=== PATIENT | female | born 1950 | race Caucasian/White ===

== ENCOUNTER 2018-05-11 06:20 | Inpatient (IN) | payer MEDICARE, OTHER ==
[~2018-05-11] VITALS: Ht 170.2 cm; Wt 93.0 kg
[~2018-05-11 06:20] MED LIST: ACYC5CRE2 TP; ALBU6.7H INH; AMIT100T58 PO; BUDE10.22 INH; BUSP10TA10 PO; CELE-85 PO; CLIN-5 PO; FURO20TA4 PO; HYDR-3965 PO; LANTUS SUBCUT; LEVE250T PO; Levetiracetam PO; METO100T14 PO; NITR0.4T SL; PHEN100C12 PO; PHENYTOIN SODIUM PO; SIMV20TA5 PO; SPIIN IH; humalog SQ
[2018-05-11] MEDS ORDERED: ondansetron/PF 4mg/2ml inj IV ONE (06:45)
[2018-05-11] MEDS ORDERED: normal saline 1000ML IV soln IVB ONE (06:45)
[2018-05-11] MEDS ORDERED: ipratropium/albuterol 3ml nebule NEB ONE (06:45)
[2018-05-11] MEDS ORDERED: morphine 4 MG/ML inj SYRINge IV ONE (06:45)
[2018-05-11] MEDS ORDERED: methylPREDNISolone sod succ 125mg/2ml vial IV ONE (06:45)
[2018-05-11 07:04] LABS: BASOPHILS % (AUTO) 0.1 % (0-1); EOSINOPHILS # (AUTO) 0.1 X10'3 (0-0.9); EOSINOPHILS % (AUTO) 1.3 % (0-6); HEMATOCRIT 42.9 % (35.0-45.0); HEMOGLOBIN 14.4 g/dl (12.0-16.0); LYMPHOCYTES # (AUTO) 0.8 X10'3 (1.1-4.8); LYMPHOCYTES % (AUTO) 8.7 % (21-51); MEAN CORPUSCULAR HEMOGLOBIN 29.5 PG (27.0-31.0); MEAN CORPUSCULAR HGB CONC 33.5 % (33.0-36.5); MEAN CORPUSCULAR VOLUME 88.2 FL (78-98); MEAN PLATELET VOLUME 8.1 FL (7.4-10.4); MONOCYTES # (AUTO) 0.5 X10'3 (0-0.9); MONOCYTES % (AUTO) 4.8 % (2-12); NEUTROPHILS # (AUTO) 8.2 X10'3 (1.8-7.7); NEUTROPHILS % (AUTO) 85.1 % (42-75); PLATELET COUNT 338 X10'3 (140-440); RED BLOOD COUNT 4.87 X10'6 (4.20-5.60); RED CELL DISTRIBUTION WIDTH 13.3 % (11.5-14.5); WHITE BLOOD COUNT 9.7 X10'3 (4.5-11.0)
[2018-05-11 07:22] LABS: ALANINE AMINOTRANSFERASE 23 U/L (12-78); ALBUMIN 2.9 G/DL (3.4-5.0); ALBUMIN/GLOBULIN RATIO 0.7 (1.1-1.5); ALKALINE PHOSPHATASE 96 IU/L (46-116); ANION GAP 11 (8-16); ASPARTATE AMINO TRANSFERASE 17 U/L (10-37); BILIRUBIN,TOTAL 0.2 MG/DL (0.1-1.0); BLOOD UREA NITROGEN 9 MG/DL (7-18); BUN/CREATININE RATIO 11.1 (6.6-38.0); CALCIUM 9.7 MG/DL (8.5-10.1); CHLORIDE 98 MMOL/L (99-107); CREATININE 0.81 MG/DL (0.40-0.90); GLUCOSE 234 MG/DL (70-104); SODIUM 141 MMOL/L (135-145); TOTAL CARBON DIOXIDE 31.8 MMOL/L (24-32); TOTAL PROTEIN 7.3 G/DL (6.4-8.2); eGFR 71 ML/MIN
[2018-05-11 07:29] LABS: AMYLASE 26 U/L (25-115); LIPASE 359 U/L (73-393); MAGNESIUM 1.5 MG/DL (1.5-2.4); TROPONIN I < 0.04 NG/ML (0.0-0.05)
[2018-05-11 07:31] LABS: D-DIMER 3.26 MG/L FEU (0-0.50); INR 1.1 INR; PROTHROMBIN TIME 10.7 SECONDS (9.0-12.0)
[2018-05-11] MEDS ORDERED: metoprolol tartrate 1mg/ml inj IV ONE ×2 (07:45→09:45)
[2018-05-11] MEDS ORDERED: metoprolol tartrate 50mg tablet PO ONE ×2 (07:45→09:45)
[2018-05-11] MEDS ORDERED: iohexol 350MG/ML 100ml bottle IV ONE (07:49)
[2018-05-11] MEDS ORDERED: GABA-532 PO ×2 (08:00)
[2018-05-11] MEDS ORDERED: CYCL-394 PO (08:00)
[2018-05-11] MEDS ORDERED: LANTUS SQ (08:00)
[2018-05-11] MEDS ORDERED: LIRA0.6P2 SQ (08:12)
[2018-05-11] MEDS ORDERED: ATOR10TA87 PO (08:19)
[2018-05-11] MEDS: MESSAGE TO NURSING PO NR ×2 (08:40→10:00)
[2018-05-11] MEDS ORDERED: metroNIDAZOLE-Flagyl 500mg/NS 100 ML IV STA (08:58)
[2018-05-11] MEDS ORDERED: nicotine 21mg patch - 24 hr TD ONE (09:25)
[2018-05-11] MEDS: levoFLOXACIN-Levaquin 500mg/D5 100 ML IV ONE ×2 (10:00→11:20)
[2018-05-11 10:06] LABS: CLARITY,URINE CLEAR (Clear); COLOR,URINE YELLOW (Yellow); GLUCOSE, URINE NEGATIVE (Neg); KETONES,URINE NEGATIVE (Neg); LEUKOCYTE ESTERASE ,URINE NEGATIVE (Neg); NITRITES, URINE NEGATIVE (Neg); OCCULT BLOOD,URINE NEGATIVE (Neg); PH,URINE 6.5 (4.8-8.0); PROTEIN,URINE NEGATIVE (Neg); UROBILINOGEN,URINE 0.2 E.U/dL (0.2-1.0)
[2018-05-11 10:14] LABS: UA COLLECTION TYPE CLN CATCH MIDSTREAM
[2018-05-11] MEDS: normal saline 1000ml 1,000 ML IV SCH (10:52)
[2018-05-11] MEDS ORDERED: magnesium 1gm/100ml D5W IVPB 100 ML IV PRN (10:55)
[2018-05-11] MEDS ORDERED: ondansetron/PF 4mg/2ml inj IV PRN (10:55)
[2018-05-11] MEDS ORDERED: magnesium Cl slow-release 64mg tablet PO PRN (10:55)
[2018-05-11] MEDS: K and/or MAG REPLACEMENT MC SCH (10:55)
[2018-05-11] MEDS ORDERED: diphenhydrAMINE 25mg capsule PO PRN (10:55)
[2018-05-11] MEDS ORDERED: acetaminophen 650mg rectal suppository RC PRN (10:55)
[2018-05-11] MEDS ORDERED: morphine 2 MG/ML inj. syringe IV PRN (10:55)
[2018-05-11] MEDS ORDERED: MESSAGE TO PHARMACY PO ONE (10:55)
[2018-05-11] MEDS ORDERED: dextrose ORAL solution 15 GM/59 ML bottle PO PRN ×2 (10:55)
[2018-05-11] MEDS ORDERED: HYDROcodone/acetaminophen 5mg/325mg tablet PO PRN (10:55)
[2018-05-11] MEDS ORDERED: dextrose 50%-water 50ml dispensing syringe IV PRN ×2 (10:55)
[2018-05-11] MEDS ORDERED: magnesium 4gm in 100ml NS 100 ML IV PRN (10:55)
[2018-05-11] MEDS ORDERED: mag hydrox/Alum hydrox/simeth 30ml oral suspension PO PRN (10:55)
[2018-05-11] MEDS ORDERED: potassium Cl 20 mEq SR tablet PO PRN ×2 (10:55)
[2018-05-11] MEDS ORDERED: magnesium hydroxide 30ml (MOM) UD suspension PO PRN (10:55)
[2018-05-11] MEDS ORDERED: potassium Cl 40MEQ/NS 500ml 500 ML IV PRN ×2 (10:55)
[2018-05-11] MEDS ORDERED: acetaminophen 325mg tablet PO PRN ×2 (10:55)
[2018-05-11] MEDS ORDERED: glucagon, human recombinant 1mg kit SUBCUT PRN (10:55)
[2018-05-11] MEDS ORDERED: bisacodyl 10mg suppository rectal RC PRN (10:55)
[2018-05-11 11:53] LABS: HEMOGLOBIN A1C 9.3 % (4.5-6.2)
[2018-05-11] MEDS ORDERED: nitroGLYCERIN 0.4mg SUBLingual tab SL PRN (12:15)
[2018-05-11] MEDS ORDERED: albuterol 2.5 MG/3 ML nebule NEB PRN (12:25)
[2018-05-11] MEDS: cyclobenzaprine 10mg tablet PO SCH ×2 (13:00→22:37)
[2018-05-11] MEDS: ipratropium/albuterol 3ml nebule NEB SCH ×3 (14:09→22:33)
[2018-05-11] MEDS: morphine 2 MG/ML inj. syringe IV PRN (14:44)
[2018-05-11 15:41] VITALS: BP 150/89
[2018-05-11] MEDS: methylPREDNISolone sod succ 125mg/2ml vial IV SCH (17:27)
[2018-05-11] MEDS: HYDROcodone/acetaminophen 10/325mg tab PO PRN ×2 (17:30→23:06)
[2018-05-11 19:00] VITALS: BP 153/88
[2018-05-11] MEDS: metoprolol tartrate 50mg tablet PO SCH (20:09)
[2018-05-11] MEDS: busPIRone 15mg tablet PO SCH (20:09)
[2018-05-11] MEDS: insulin Lispro (HumaLOG) vial - multi-dose SQ SCH ×2 (20:15→22:48)
[2018-05-11] MEDS ORDERED: temazepam 15mg capsule PO PRN (21:00)
[2018-05-11] MEDS: gabapentin 300mg capsule PO SCH (22:37)
[2018-05-11] MEDS: amitryptiline 50mg tablet PO SCH (22:38)
[2018-05-11] MEDS: insulin glargine (Lantus) pen - multi-dose SQ SCH (22:47)
[2018-05-11 23:00] VITALS: BP 137/77
[2018-05-12] MEDS: normal saline 1000ml 1,000 ML IV SCH ×2 (00:12→13:20)
[2018-05-12] MEDS: methylPREDNISolone sod succ 125mg/2ml vial IV SCH ×4 (00:20→23:55)
[2018-05-12] MEDS: ipratropium/albuterol 3ml nebule NEB SCH ×6 (02:20→23:19)
[2018-05-12 03:00] VITALS: BP 150/75
[2018-05-12 07:00] LABS: BASOPHILS # (AUTO) 0.1 X10'3 (0-0.2); BASOPHILS % (AUTO) 0.7 % (0-1); EOSINOPHILS % (AUTO) 0.1 % (0-6); HEMOGLOBIN 12.9 g/dl (12.0-16.0); LYMPHOCYTES # (AUTO) 0.6 X10'3 (1.1-4.8); LYMPHOCYTES % (AUTO) 6.4 % (21-51); MEAN CORPUSCULAR HEMOGLOBIN 29.9 PG (27.0-31.0); MEAN CORPUSCULAR VOLUME 87.9 FL (78-98); MONOCYTES # (AUTO) 0.3 X10'3 (0-0.9); MONOCYTES % (AUTO) 3.2 % (2-12); NEUTROPHILS # (AUTO) 7.8 X10'3 (1.8-7.7); NEUTROPHILS % (AUTO) 89.6 % (42-75); PLATELET COUNT 371 X10'3 (140-440); RED BLOOD COUNT 4.32 X10'6 (4.20-5.60); RED CELL DISTRIBUTION WIDTH 13.7 % (11.5-14.5); WHITE BLOOD COUNT 8.7 X10'3 (4.5-11.0)
[2018-05-12 07:17] VITALS: BP 138/94
[2018-05-12 07:39] LABS: ALANINE AMINOTRANSFERASE 18 U/L (12-78); ALBUMIN 2.6 G/DL (3.4-5.0); ALBUMIN/GLOBULIN RATIO 0.7 (1.1-1.5); ALKALINE PHOSPHATASE 84 IU/L (46-116); ASPARTATE AMINO TRANSFERASE 16 U/L (10-37); BILIRUBIN,TOTAL 0.2 MG/DL (0.1-1.0); BLOOD UREA NITROGEN 11 MG/DL (7-18); BUN/CREATININE RATIO 15.9 (6.6-38.0); CALCIUM 9.5 MG/DL (8.5-10.1); CHOL/HDL RATIO 5.8 (0.00-4.99); CHOLESTEROL 221 MG/DL (0-200); CREATININE 0.69 MG/DL (0.40-0.90); GLUCOSE 286 MG/DL (70-104); HDL CHOLESTEROL 38 MG/DL (35-60); LDL CHOLESTEROL 157 MG/DL (50-100); MAGNESIUM 1.5 MG/DL (1.5-2.4); PHOSPHORUS 3.7 MG/DL (2.3-4.5); TOTAL CARBON DIOXIDE 26.3 MMOL/L (24-32); TOTAL PROTEIN 6.6 G/DL (6.4-8.2); TRIGLYCERIDES 151 MG/DL (20-135); eGFR 85 ML/MIN
[2018-05-12] MEDS: levoFLOXACIN-Levaquin 750MG/D5 150 ML IV SCH (07:48)
[2018-05-12] MEDS: cyclobenzaprine 10mg tablet PO SCH ×3 (07:49→22:11)
[2018-05-12] MEDS: furosemide 20MG tablet PO SCH (07:49)
[2018-05-12] MEDS: busPIRone 15mg tablet PO SCH ×2 (07:51→20:07)
[2018-05-12] MEDS: gabapentin 300mg capsule PO SCH ×2 (07:51→22:12)
[2018-05-12] MEDS: metoprolol tartrate 50mg tablet PO SCH ×2 (07:51→20:08)
[2018-05-12] MEDS: morphine 2 MG/ML inj. syringe IV PRN ×2 (07:53→15:57)
[2018-05-12] MEDS: enoxaparin 40mg/0.4ml syringe SUBCUT SCH (07:53)
[2018-05-12 07:59] LABS: ANION GAP 12 (8-16); CHLORIDE 95 MMOL/L (99-107); SODIUM 133 MMOL/L (135-145)
[2018-05-12] MEDS: K and/or MAG REPLACEMENT MC SCH (08:00)
[2018-05-12 08:03] LABS: POTASSIUM 4.4 MMOL/L (3.5-5.1)
[2018-05-12] MEDS: insulin Lispro (HumaLOG) vial - multi-dose SQ SCH ×4 (10:09→22:21)
[2018-05-12] MEDS: MESSAGE TO NURSING PO NR (10:42)
[2018-05-12] MEDS ORDERED: nicotine 21mg patch - 24 hr TD ONE (12:30)
[2018-05-12 15:00] VITALS: BP 127/74
[2018-05-12 19:00] VITALS: BP 131/74
[2018-05-12] MEDS: lactobacillus rhamnosus 10,000 MMU CELLS/CAPSULE PO SCH (19:58)
[2018-05-12] MEDS: HYDROcodone/acetaminophen 10/325mg tab PO PRN (20:14)
[2018-05-12] MEDS: amitryptiline 50mg tablet PO SCH (22:10)
[2018-05-12] MEDS: insulin glargine (Lantus) pen - multi-dose SQ SCH (22:19)
[2018-05-12 23:00] VITALS: BP 145/80
[2018-05-13] MEDS: ipratropium/albuterol 3ml nebule NEB SCH ×3 (03:09→11:11)
[2018-05-13] MEDS: HYDROcodone/acetaminophen 10/325mg tab PO PRN ×2 (05:40→10:54)
[2018-05-13] MEDS: normal saline 1000ml 1,000 ML IV SCH (05:41)
[2018-05-13 05:46] LABS: BASOPHILS % (AUTO) 0.3 % (0-1); EOSINOPHILS % (AUTO) 0.1 % (0-6); HEMATOCRIT 40.3 % (35.0-45.0); HEMOGLOBIN 13.2 g/dl (12.0-16.0); LYMPHOCYTES # (AUTO) 0.7 X10'3 (1.1-4.8); LYMPHOCYTES % (AUTO) 5.6 % (21-51); MEAN CORPUSCULAR HEMOGLOBIN 29.1 PG (27.0-31.0); MEAN CORPUSCULAR HGB CONC 32.9 % (33.0-36.5); MEAN CORPUSCULAR VOLUME 88.6 FL (78-98); MEAN PLATELET VOLUME 8.6 FL (7.4-10.4); MONOCYTES # (AUTO) 0.3 X10'3 (0-0.9); MONOCYTES % (AUTO) 2.3 % (2-12); NEUTROPHILS # (AUTO) 11.6 X10'3 (1.8-7.7); NEUTROPHILS % (AUTO) 91.7 % (42-75); PLATELET COUNT 308 X10'3 (140-440); RED BLOOD COUNT 4.54 X10'6 (4.20-5.60); RED CELL DISTRIBUTION WIDTH 13.5 % (11.5-14.5); WHITE BLOOD COUNT 12.6 X10'3 (4.5-11.0)
[2018-05-13 06:23] LABS: ALANINE AMINOTRANSFERASE 18 U/L (12-78); ALBUMIN 2.6 G/DL (3.4-5.0); ALBUMIN/GLOBULIN RATIO 0.7 (1.1-1.5); ALKALINE PHOSPHATASE 85 IU/L (46-116); ANION GAP 9 (8-16); ASPARTATE AMINO TRANSFERASE 14 U/L (10-37); BILIRUBIN,TOTAL 0.2 MG/DL (0.1-1.0); BLOOD UREA NITROGEN 13 MG/DL (7-18); BUN/CREATININE RATIO 17.6 (6.6-38.0); CALCIUM 9.3 MG/DL (8.5-10.1); CHLORIDE 95 MMOL/L (99-107); CREATININE 0.74 MG/DL (0.40-0.90); GLUCOSE 222 MG/DL (70-104); MAGNESIUM 1.6 MG/DL (1.5-2.4); PHOSPHORUS 3.5 MG/DL (2.3-4.5); POTASSIUM 4.3 MMOL/L (3.5-5.1); SODIUM 132 MMOL/L (135-145); TOTAL CARBON DIOXIDE 28.3 MMOL/L (24-32); TOTAL PROTEIN 6.3 G/DL (6.4-8.2); eGFR 79 ML/MIN
[2018-05-13 07:15] VITALS: BP 152/104
[2018-05-13] MEDS ORDERED: nicotine 21mg patch - 24 hr TD SCH (08:00)
[2018-05-13] MEDS: K and/or MAG REPLACEMENT MC SCH (08:00)
[2018-05-13] MEDS: insulin Lispro (HumaLOG) vial - multi-dose SQ SCH (08:32)
[2018-05-13] MEDS: enoxaparin 40mg/0.4ml syringe SUBCUT SCH (08:38)
[2018-05-13] MEDS: busPIRone 15mg tablet PO SCH (08:39)
[2018-05-13] MEDS: metoprolol tartrate 50mg tablet PO SCH (08:40)
[2018-05-13] MEDS: cyclobenzaprine 10mg tablet PO SCH ×2 (08:41→13:13)
[2018-05-13] MEDS: gabapentin 300mg capsule PO SCH (08:41)
[2018-05-13] MEDS: furosemide 20MG tablet PO SCH (08:42)
[2018-05-13] MEDS: lactobacillus rhamnosus 10,000 MMU CELLS/CAPSULE PO SCH (08:42)
[2018-05-13] MEDS: methylPREDNISolone sod succ 125mg/2ml vial IV SCH (08:44)
[2018-05-13] MEDS: levoFLOXACIN-Levaquin 750MG/D5 150 ML IV SCH (08:45)
[2018-05-13 11:00] VITALS: BP 152/98
[2018-05-13] MEDS ORDERED: LEVO500T89 PO (14:02)
[2018-05-13] MEDS ORDERED: LACT1CAP26 PO (14:02)
[2018-05-13] MEDS ORDERED: NICO-687 TD (14:02)
[2018-05-13] MEDS ORDERED: BUDE10.22 INH (14:02)
[2018-05-13] MEDS ORDERED: PRED10TA23 PO (14:02)
[2018-05-13] MEDS ORDERED: TIOT18CA3 INH (14:02)
== END 2018-05-13 15:28 | disposition home health service (06) | DRG 193 ==
LOC: ER 06:20 → ED HOLD 10:52 → PCU 3S 15:30
PROVIDERS: ADMIT Family Medicine; ATTEND Family Medicine
PROC: BW251ZZ Computerized Tomography (CT Scan) of Chest, Abdomen and Pelvis using Low Osmolar Contrast (ICD-10-PCS; principal; 2018-05-11)
DX: J18.9 Pneumonia, unspecified organism (principal); J96.91 Respiratory failure, unspecified with hypoxia; J44.0 Chronic obstructive pulmonary disease with (acute) lower respiratory infection; J44.1 Chronic obstructive pulmonary disease with (acute) exacerbation; I50.32 Chronic diastolic (congestive) heart failure; E11.65 Type 2 diabetes mellitus with hyperglycemia; E78.5 Hyperlipidemia, unspecified; G89.4 Chronic pain syndrome; I11.0 Hypertensive heart disease with heart failure; I25.10 Atherosclerotic heart disease of native coronary artery without angina pectoris; I27.81 Cor pulmonale (chronic); F32.9 Major depressive disorder, single episode, unspecified; F41.9 Anxiety disorder, unspecified; M19.90 Unspecified osteoarthritis, unspecified site; R59.0 Localized enlarged lymph nodes; M79.7 Fibromyalgia; F17.210 Nicotine dependence, cigarettes, uncomplicated; Z90.13 Acquired absence of bilateral breasts and nipples; Z90.710 Acquired absence of both cervix and uterus; Z99.81 Dependence on supplemental oxygen; Z28.21 Immunization not carried out because of patient refusal; Z79.899 Other long term (current) drug therapy; Z79.4 Long term (current) use of insulin; Z85.3 Personal history of malignant neoplasm of breast; Z86.74 Personal history of sudden cardiac arrest; Z80.3 Family history of malignant neoplasm of breast; Z80.42 Family history of malignant neoplasm of prostate; Z71.6 Tobacco abuse counseling
CPT/HCPCS: 36415; 71045; 71275; 74177; 80053; 80061; 81003; 82150; 82948; 83036; 83605; 83690; 83735; 83880; 84100; 84145; 84484; 85025; 85379; 85610; 87040; 87070; 93005; 93306; 94640; 94760; 96365; 96375; 97116; 97161; 99285; G0378; J1650; J1815; J1956; J2270; J2405; J2930; J3490; J7030; Q9967

== ENCOUNTER 2018-05-27 08:04 | Emergency (ER) | payer MEDICARE ==
[~2018-05-27] VITALS: Ht 170.2 cm; Wt 86.3 kg
[~2018-05-27 08:04] MED LIST changes: -ACYC5CRE2 TP; -CELE-85 PO; -CLIN-5 PO; +CYCL-394 PO; +GABA-532 PO; -HYDR-3965 PO; +LACT1CAP26 PO; +LANTUS SQ; -LANTUS SUBCUT; -LEVE250T PO; +LEVO500T89 PO; +LIRA0.6P2 SQ; -Levetiracetam PO; +NICO-687 TD; -PHEN100C12 PO; -PHENYTOIN SODIUM PO; +PRED10TA23 PO; -SIMV20TA5 PO; -SPIIN IH; +TIOT18CA3 INH; -humalog SQ
[2018-05-27] MEDS ORDERED: ondansetron/PF 4mg/2ml inj IV ONE (09:40)
[2018-05-27] MEDS: HYDROmorphone 1 mg/ml syringe IV PRN ×7 (10:01→23:34)
[2018-05-27 12:01] LABS: BASOPHILS # (AUTO) 0.3 X10'3 (0-0.2); BASOPHILS % (AUTO) 1.3 % (0-1); EOSINOPHILS # (AUTO) 0.4 X10'3 (0-0.9); EOSINOPHILS % (AUTO) 1.7 % (0-6); HEMATOCRIT 42.8 % (35.0-45.0); HEMOGLOBIN 13.8 g/dl (12.0-16.0); LYMPHOCYTES % (AUTO) 4.4 % (21-51); MEAN CORPUSCULAR HEMOGLOBIN 28.7 PG (27.0-31.0); MEAN CORPUSCULAR HGB CONC 32.3 % (33.0-36.5); MEAN CORPUSCULAR VOLUME 88.7 FL (78-98); MEAN PLATELET VOLUME 7.9 FL (7.4-10.4); MONOCYTES # (AUTO) 0.2 X10'3 (0-0.9); NEUTROPHILS # (AUTO) 21.2 X10'3 (1.8-7.7); NEUTROPHILS % (AUTO) 91.6 % (42-75); PLATELET COUNT 272 X10'3 (140-440); RED BLOOD COUNT 4.83 X10'6 (4.20-5.60); RED CELL DISTRIBUTION WIDTH 13.5 % (11.5-14.5); WHITE BLOOD COUNT 23.1 X10'3 (4.5-11.0)
[2018-05-27 12:07] LABS: PARTIAL THROMBOPLASTIN TIME 27 SECONDS (22-32); PROTHROMBIN TIME 10.4 SECONDS (9.0-12.0)
[2018-05-27 12:10] LABS: ALANINE AMINOTRANSFERASE 24 U/L (12-78); ALBUMIN 2.5 G/DL (3.4-5.0); ALBUMIN/GLOBULIN RATIO 0.6 (1.1-1.5); ALKALINE PHOSPHATASE 133 IU/L (46-116); ANION GAP 7 (8-16); ASPARTATE AMINO TRANSFERASE 15 U/L (10-37); BILIRUBIN,TOTAL 0.3 MG/DL (0.1-1.0); BLOOD UREA NITROGEN 13 MG/DL (7-18); CALCIUM 9.2 MG/DL (8.5-10.1); CHLORIDE 96 MMOL/L (99-107); CREATININE 0.81 MG/DL (0.40-0.90); GLUCOSE 251 MG/DL (70-104); SODIUM 133 MMOL/L (135-145); TOTAL CARBON DIOXIDE 29.6 MMOL/L (24-32); TOTAL PROTEIN 6.4 G/DL (6.4-8.2); eGFR 71 ML/MIN
[2018-05-27 12:19] LABS: MAGNESIUM 1.6 MG/DL (1.5-2.4)
[2018-05-27] MEDS ORDERED: heparin 10,000 units/1 ML INJ IV ONE (15:55)
[2018-05-27] MEDS ORDERED: heparin 10,000 units/1 ML INJ IV PRN (15:55)
[2018-05-27] MEDS ORDERED: ipratropium/albuterol 3ml nebule NEB ONE (16:15)
[2018-05-27] MEDS: heparin 25,000 UNIT/250ml bag 250 ML IV SCH (18:03)
[2018-05-27] MEDS ORDERED: levoFLOXACIN-Levaquin 750MG/D5 150 ML IV STA (18:49)
[2018-05-27] MEDS ORDERED: normal saline 1000ML IV soln IVB ONE (18:50)
[2018-05-27] MEDS ORDERED: LEVA15HF4 INH (20:38)
[2018-05-27] MEDS ORDERED: ASPI81TA52 PO (20:38)
[2018-05-27] MEDS ORDERED: LANTUS SQ (20:38)
[2018-05-28] MEDS ORDERED: ondansetron/PF 4mg/2ml inj IV ONE (00:50)
[2018-05-28] MEDS: heparin 25,000 UNIT/250ml bag 250 ML IV SCH ×2 (01:52→09:36)
[2018-05-28] MEDS: HYDROmorphone 1 mg/ml syringe IV PRN (01:54)
[2018-05-28] MEDS ORDERED: amitryptiline 50mg tablet PO ONE (02:00)
[2018-05-28] MEDS ORDERED: CADD PCA waste documentation MC PRN (02:15)
[2018-05-28] MEDS ORDERED: naloxone 0.4 mg/ml inj IV PRN (02:15)
[2018-05-28] MEDS: HYDROmorphone/NS 1 mg/ml CADD 50 ML IV SCH ×7 (02:52→12:56)
[2018-05-28 09:35] LABS: PARTIAL THROMBOPLASTIN TIME 102 SECONDS (22-32)
[2018-05-28] MEDS ORDERED: HYDR473S54 PO (09:55)
[2018-05-28] MEDS ORDERED: OXYC5SOL15 PO (13:17)
[2018-05-28 13:20] VITALS: BP 139/73
[2018-05-28] MEDS ORDERED: amitryptiline 50mg tablet PO SCH (21:00)
== END 2018-05-28 15:21 | disposition left against medical advice (07) ==
LOC: ER 08:04
DX: C34.90 Malignant neoplasm of unspecified part of unspecified bronchus or lung (principal); I10 Essential (primary) hypertension; J44.9 Chronic obstructive pulmonary disease, unspecified; E11.9 Type 2 diabetes mellitus without complications; M19.90 Unspecified osteoarthritis, unspecified site; Z90.710 Acquired absence of both cervix and uterus; Z85.3 Personal history of malignant neoplasm of breast; Z90.89 Acquired absence of other organs; Z79.82 Long term (current) use of aspirin; Z79.4 Long term (current) use of insulin; Z79.899 Other long term (current) drug therapy; Z87.01 Personal history of pneumonia (recurrent)
CPT/HCPCS: 36415; 71045; 80053; 83605; 83735; 83880; 84145; 84484; 85025; 85610; 85730; 87040; 87077; 87186; 93005; 94640; 94760; 96365; 96366; 96367; 96375; 96376; 99284; J1170; J1644; J1956; J2405